=== PATIENT | female | born 2000 | race Caucasian/White ===

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

== ENCOUNTER 2022-08-06 15:20 | Emergency (ER) | payer MEDICAID, OTHER ==
[~2022-08-06] VITALS: Ht 180.3 cm; Wt 53.3 kg
[2022-08-06 15:20] VITALS: TEMP 99.7
[~2022-08-06 15:20] MED LIST changes: -MONT10TA2; +MONT10TA97
[2022-08-06] MEDS ORDERED: IBUPROFEN 600MG TAB PO ONE (17:05)
[2022-08-06] MEDS ORDERED: IBUP-1022 PO (17:06)
[2022-08-06 17:19] VITALS: BP 138/72; O2SAT 100
== END 2022-08-06 17:20 | disposition home or self-care (01) ==
LOC: M ED 15:20
DX: S60.042A Contusion of left ring finger without damage to nail, initial encounter (principal); W23.0XXA Caught, crushed, jammed, or pinched between moving objects, initial encounter; Y99.0 Civilian activity done for income or pay

== ENCOUNTER 2023-08-15 18:14 | Outpatient (CLI) | payer OTHER ==
[~2023-08-15] VITALS: Ht 180.3 cm; Wt 73.8 kg
[~2023-08-15 18:14] MED LIST changes: +IBUP-1022 PO
[2023-08-15] MEDS ORDERED: PRENTAB9 PO (18:31)
[2023-08-15 18:35] VITALS: BP 140/73
[2023-08-15] MEDS ORDERED: HOME MED LIST COMPLETE! XX SCH (18:35)
[2023-08-15 18:52] VITALS: BP 137/85
== END 2023-08-15 19:37 | disposition home or self-care (01) ==
LOC: M LDO 18:14
PROVIDERS: ATTEND Advanced Practice Midwife
DX: O26.893 Other specified pregnancy related conditions, third trimester (principal); R25.2 Cramp and spasm; Z3A.35 35 weeks gestation of pregnancy
CPT/HCPCS: 59025; G0463

== ENCOUNTER 2025-01-17 19:35 | Emergency (ER) | payer OTHER, SELFPAY ==
[~2025-01-17] VITALS: Ht 177.8 cm; Wt 56.4 kg
[~2025-01-17 19:35] MED LIST changes: -IBUP-1022 PO; +IBUP600T42 PO; +PRENTAB9 PO
[2025-01-17 20:10] LABS: KETONE, URINE AUTO RFX NEGATIVE (NEGATIVE); MUCUS, URINE RFX SMALL (NEGATIVE); NITRITE, URINE AUTO RFX NEGATIVE (NEGATIVE); RBC, URINE AUTO RFX 116 /HPF (0-3); SQUAM EPITHELIAL CELL UR AURFX 1 /HPF (0-6)
[2025-01-17 20:11] LABS: LEUKOCYTE ESTERASE UR AUTO RFX 2+ (NEGATIVE); WBC, URINE AUTO RFX 150 /HPF (0-3)
[2025-01-17] MEDS ORDERED: CEFD300C PO (20:38)
[2025-01-17 20:45] VITALS: BP 132/75; TEMP 98.6; O2SAT 100
[2025-01-17] MEDS: CEFDINIR 300 MG CAP PO ONE (20:46)
== END 2025-01-17 20:51 | disposition home or self-care (01) ==
LOC: M ED 19:35
DX: O23.11 Infections of bladder in pregnancy, first trimester (principal); Z3A.12 12 weeks gestation of pregnancy; Z79.899 Other long term (current) drug therapy